=== PATIENT | male | born 1960 | race Caucasian/White ===

== ENCOUNTER → 2021-09-06 15:31 | Outpatient (BNVA) | payer BC, SELFPAY | PROVIDERS: Family Provider Family Medicine; Visit Provider Family Medicine | DX: Z00.00 Encounter for general adult medical examination without abnormal findings (principal); E78.5 Hyperlipidemia, unspecified; I10 Essential (primary) hypertension | CPT/HCPCS: 80061; 84153 ==

== ENCOUNTER → 2022-09-13 14:52 | Outpatient (BNVA) | payer BC, SELFPAY | PROVIDERS: Family Provider Family Medicine; PCP Family Medicine; Visit Provider Family Medicine | DX: Z00.00 Encounter for general adult medical examination without abnormal findings (principal); I10 Essential (primary) hypertension | CPT/HCPCS: 80053; 80061; 84153; 85025 ==

== ENCOUNTER → 2023-06-18 10:42 | Outpatient (BNVA) | payer BC, SELFPAY | PROVIDERS: Family Provider Family Medicine; PCP Family Medicine; Visit Provider Nurse Practitioner | DX: J06.9 Acute upper respiratory infection, unspecified (principal) | CPT/HCPCS: 87400; 87880 ==

== ENCOUNTER → 2023-09-15 11:05 | Outpatient (BNVA) | payer BC, SELFPAY | PROVIDERS: Family Provider Family Medicine; PCP Family Medicine; Visit Provider Clinical Nurse Specialist Adult Health | DX: R35.0 Frequency of micturition (principal) | CPT/HCPCS: 81000; 87086 ==

== ENCOUNTER → 2023-09-18 15:43 | Outpatient (BNVA) | payer BC, SELFPAY | PROVIDERS: Family Provider Family Medicine; PCP Family Medicine; Visit Provider Family Medicine | DX: Z00.00 Encounter for general adult medical examination without abnormal findings (principal); N41.0 Acute prostatitis; I10 Essential (primary) hypertension | CPT/HCPCS: 80053; 80061; 84153; 85025 ==

== ENCOUNTER 2024-08-29 06:00 | Outpatient (CLI) | payer BC, SELFPAY | END 2024-08-29 06:01 | disposition home or self-care (01) | LOC: LAB 08-30 07:56 | PROVIDERS: PCP Family Medicine; Visit Provider Family Medicine | DX: N41.0 Acute prostatitis (principal); R35.0 Frequency of micturition | CPT/HCPCS: 81000 ==

== ENCOUNTER 2024-09-02 16:15 | Outpatient (CLI) | payer BC, SELFPAY ==
[2024-09-02] MEDS: iohexol 350 mg/mL 500 mL Btl (per mL) PO (17:12)
--- NOTE | 2024-09-02 17:15 | CTR_ITS ---
PROCEDURE INFORMATION: Exam: CT Abdomen And Pelvis With Contrast Exam date and time: 09/02/2024 5:23 PM Age: 64 years old Clinical indication: Abdominal pain; Localized; Left upper quadrant (luq); Prior surgery; Surgery date: 6+ months; Surgery type: Hernia when he was a baby; Left upper quadrant pain x 1 month; Additional info: Abd pain, auth approval # [id number] exp 09/28/2024 TECHNIQUE: Imaging protocol: Computed tomography of the abdomen and pelvis with contrast. Radiation optimization: All CT scans at this facility use at least one of these dose optimization techniques: automated exposure control; mA and/or kV adjustment per patient size (includes targeted exams where dose is matched to clinical indication); or iterative reconstruction. Contrast material: OMNIPAQUE 350; Contrast volume: 100 ml; Contrast route: INTRAVENOUS (IV); Other contrast: Oral, omnipaque 350, 50; COMPARISON: No relevant prior studies available. RADIATION DOSE METRICS: Total DLP (mGy-cm): 485.04 FINDINGS: Lungs: Unremarkable. Liver: Few small hepatic simple cysts with additional numerous subcentimeter hypodensities within the liver, too small to characterize but likely represent hepatic cysts. Gallbladder and biliary ducts: Normal. No calcified stones. No ductal dilation. Pancreas: Normal. No ductal dilation. Spleen: Normal. No splenomegaly. Adrenal glands: Normal. No mass. Kidneys and ureters: 3.8 cm simple right renal parapelvic cyst. No further imaging follow-up is required. No hydronephrosis or obstructing stones. Stomach and bowel: Oral contrast progresses into distal small bowel. No focal bowel dilatation. Few scattered colonic diverticula are present. Appendix: No evidence of appendicitis. Intraperitoneal space: Unremarkable. No free air. No significant fluid collection. Vasculature: Unremarkable. No abdominal aortic aneurysm. Lymph nodes: Unremarkable. No enlarged lymph nodes. Urinary bladder: Unremarkable as visualized. Reproductive: Unremarkable as visualized. Bones/joints: Moderate multilevel degenerative changes within visualized spine. Soft tissues: Small fat containing left inguinal hernia. CT/CT abdomen pelvis w con* [id number] IMPRESSION: 1. No acute abdominopelvic findings. 2. Very mild colonic diverticulosis without CT evidence of acute diverticulitis. COMMENTS: Consistent with the [employer]'s Incidental Findings Committee white paper (J Am Gavin Radiol 2018): Any incidental renal lesion less than 1 cm or classified as too small to characterize, or any incidental cystic renal lesion characterized as simple-appearing, is likely benign. No follow-up imaging is recommended for these lesions per consensus recommendations based on imaging criteria.
[2024-09-02 17:19] LABS: Blood Urea Nitrogen 14 mg/dL (8-23); Glomerular Filtration Rate 60.6 mL/min (90-130)
[2024-09-02] MEDS: iohexol 350 mg/mL 500 mL Btl (per mL) IV (17:24)
== END 2024-09-02 16:16 | disposition home or self-care (01) ==
PROVIDERS: Family Provider Family Medicine; PCP Family Medicine; Visit Provider Family Medicine
DX: R10.9 Unspecified abdominal pain (principal); K57.30 Diverticulosis of large intestine without perforation or abscess without bleeding; K76.89 Other specified diseases of liver; N28.1 Cyst of kidney, acquired; M47.9 Spondylosis, unspecified; K40.90 Unilateral inguinal hernia, without obstruction or gangrene, not specified as recurrent
CPT/HCPCS: 74177; 81000; 82565; 84520

== ENCOUNTER → 2024-09-25 10:04 | Outpatient (BNVA) | payer BC, SELFPAY | PROVIDERS: Family Provider Family Medicine; PCP Family Medicine; Visit Provider Family Medicine | DX: Z00.00 Encounter for general adult medical examination without abnormal findings (principal); I10 Essential (primary) hypertension; E78.5 Hyperlipidemia, unspecified | CPT/HCPCS: 80053; 80061; 84153; 85025; 86765 ==

== ENCOUNTER 2024-10-29 11:26 | Outpatient (CLI) | payer BC, SELFPAY ==
--- NOTE | 2024-10-29 11:45 | US_ITS ---
WS: [id number] ULTRASOUND SOFT TISSUES RIGHT axilla. HISTORY: suspect lipoma under right axillae/ chest wall. COMPARISON: None available. TECHNIQUE: 2-D and color Doppler imaging is submitted. Ultrasound directed to the area of concern by the patient. Superficial ovoid mass isoechoic to the RIGHT adjacent soft tissues measures 2.5 x 0.9 x 3.0 cm. This is most consistent with a small very superficial lipoma. No additional masses are identified. US/US soft tissue/extremity [id number] IMPRESSION: Small superficial lipoma RIGHT axilla.
== END 2024-10-29 11:27 | disposition home or self-care (01) ==
PROVIDERS: PCP Family Medicine; Visit Provider Family Medicine
DX: D17.22 Benign lipomatous neoplasm of skin and subcutaneous tissue of left arm (principal)
CPT/HCPCS: 76882